=== PATIENT | male | born 1965 | race Caucasian/White ===

== ENCOUNTER 2018-01-19 13:05 | Emergency (ER) | payer SELFPAY ==
[~2018-01-19] VITALS: Ht 185.4 cm; Wt 209.1 kg
[2018-01-19 13:11] VITALS: BP 126/69
[2018-01-19] MEDS ORDERED: ZYLOPRIM300 MG PO (13:15)
[2018-01-19] MEDS ORDERED: LIPITOR 40MG TA40 MG PO (13:15)
[2018-01-19] MEDS ORDERED: ZESTRIL20 M1 PO (13:15)
[2018-01-19] MEDS ORDERED: GLUCOPHAGE1000 MG PO (13:15)
[2018-01-19] MEDS ORDERED: DIABETA 5MG5 MG/TAB PO (13:15)
[2018-01-19] MEDS ORDERED: ZANTAC150 M1 PO (13:15)
[2018-01-19] MEDS ORDERED: CYCLOBENZAPRINE10 M1 PO (13:16)
[2018-01-19] MEDS ORDERED: DILAUDID4 M1 PO (13:16)
== END 2018-01-19 13:40 | disposition left against medical advice (07) ==
LOC: ED 13:05
DX: M54.5 Low back pain (principal); Z76.5 Malingerer [conscious simulation]; Z53.21 Procedure and treatment not carried out due to patient leaving prior to being seen by health care provider; E66.01 Morbid (severe) obesity due to excess calories; R60.0 Localized edema; Z79.899 Other long term (current) drug therapy; Z68.44 Body mass index [BMI] 60.0-69.9, adult